=== PATIENT | female | born 1980 | race Caucasian/White ===

== ENCOUNTER 2021-04-29 16:19 | Emergency (ER) | payer SELFPAY ==
[2021-04-29 19:51] VITALS: BP 121/79; PULSE 108; RESP 18; TEMP 37.6; O2SAT 100; BMI 22.4
== END 2021-04-29 23:15 | disposition left against medical advice (07) ==
PROVIDERS: Emergency Provider Emergency Medicine
DX: L02.214 Cutaneous abscess of groin (principal)
CPT/HCPCS: 99281